=== PATIENT | male | born 1960 | race Caucasian/White ===

== ENCOUNTER 2019-03-01 04:39 | Emergency (ER) | payer OTHER ==
--- NOTE | 2019-03-01 04:54 | ED Physician Documentation ---
General Adult - HISTORIAN Historian: patient - HPI Stated Complaint: laceration Chief Complaint: Laceration/Recheck/Suture Additional Information: Patient presents to ED with 4 cm laceration to forehead after walking into door tonight around 0200. He is not current on tetanus. Onset: hours (3) Timing: still present Severity: moderate - ROS CONST: no problems EYES/ENT: none CVS/RESP: none GI/: none MS/SKIN/LYMPH: none NEURO/PSYCH: denies: headache, dizziness - PAST HX Past History: none Other History: none Surgeries/Procedures: none Immunizations: denies: tetanus Allergies/Adverse Reactions: Allergies Allergy/AdvReac Type Severity Reaction Status Date / Time No Known Allergies Allergy Verified 03/01/19 05:02 Home Medications: Ambulatory Orders Medication Instructions Recorded NK 03/01/19 - SOCIAL HX Smoking History: non-smoker Alcohol Use: none Drug Use: none - FAMILY HX Family History: No - VITAL SIGNS Vital Signs: Vital Signs Temp Pulse Resp BP Pulse Ox 99.1 F 83 12 137/86 99 03/01/19 04:40 03/01/19 04:40 03/01/19 04:40 03/01/19 04:40 03/01/19 04:40 - REVIEWED ASSESSMENTS Nursing Assessment Reviewed: Yes Vitals Reviewed: Yes Procedures Wound Location: head Wound Length: 4cm Wound's Depth, Shape: superficial Wound Explored: clean Irrigated w/ Saline (ccs): 250 Betadine Prep?: Yes Wound Debrided: minimal Wound Repaired With: Dermabond Layer Closure?: No Sterile Dressing Applied?: No Splint Applied?: No Sling Applied?: No ED Results Lab/Radiology - Orders Orders: ED Orders Category Date Time Status Skin Adhesive NOW Care 03/01/19 05:00 Ordered Diph,Pertuss(Acell),Tet Vac/Pf [Adacel] Med 03/01/19 04:48 Once 0.5 ml IM .ONCE ONE General Adult Physical Exam - PHYSICAL EXAM GENERAL APPEARANCE: no distress EENT: RIOS, other (4cm laceration coronal middle of forehead) NECK: supple RESPIRATORY: no resp distress, chest non-tender CVS: reg rate & rhythm, heart sounds normal ABDOMEN: soft, normal bowel sounds BACK: normal inspection, no CVA tenderness SKIN: warm/dry, normal color EXTREMITIES: non-tender, normal range of motion, no evidence of injury, no edema NEURO: oriented X3, mood/affect nml Discharge Clincal Impression: Laceration Additional Instructions: 1. Keep laceration dry. No swimming. Wash around the area but do not get it wet. 2. NO lotions, crmes, ointments or oils applied to laceration 3. Skin glue will wear off in 7-10. Do not pick at it. 4. Follow up with PCP within 1 week 5. Return to ER for new or worsening symptoms Condition: Stable Disposition: 01 HOME, SELF-CARE Decision to Admit: NO Date of Decison to Admit: 03/01/19 Decision Time: 05:11
[2019-03-01] MEDS: DIPH,PERTUSS(ACELL),TET VAC/PF 0.5 ML DISP.SYRIN IM ONE (05:00)
[2019-03-01 05:02] VITALS: BP 137/86
== END 2019-03-01 05:15 | disposition home or self-care (01) ==
LOC: ED 04:39
DX: S01.81XA Laceration without foreign body of other part of head, initial encounter (principal); W22.03XA Walked into furniture, initial encounter; Y93.01 Activity, walking, marching and hiking
CPT/HCPCS: 12013; 90715; 96372; 99282; 99284